=== PATIENT | male | born 1965 | race Hispanic/Latino ===

== ENCOUNTER 2020-03-15 07:54 | Emergency (ER) | payer SELFPAY ==
[2020-03-15] MEDS ORDERED: LIDOCAINE 1%/EPINEPHRINE 1:100,000 VIAL (20 ML) INFILTRATI NR (10:00)
--- NOTE | 2020-03-15 10:00 | Cat Scan Report ---
CT HEAD WITHOUT CONTRAST INDICATION / CLINICAL INFORMATION: MAIN. TECHNIQUE: Axial imaging performed from the skull apex through the skull base without the use of cont rast. Sagittal and coronal reformatted images. All CT scans at this location are performed using CT dose reduction for ALARA by means of automated exposure control. COMPARISON: None available. FINDINGS: CEREBRAL PARENCHYMA: No acute parenchymal abnormality. 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 HEMORRHAGE: None. EXTRA-AXIAL SPACES: Normal in size and morphology for the patient's age. VENTRICULAR SYSTEM: Normal in size and morphology for the patient's age. MIDLINE SHIFT OR HERNIATION: None. CEREBELLUM / BRAINSTEM: No significant abnormality. CALVARIUM: No significant abnormality. ORBITS: Normal as visualized. PARANASAL SINUSES / MASTOID AIR CELLS: Normal as visualized. SOFT TISSUES of HEAD: Left parietal soft tissue laceration is identified. ADDITIONAL FINDINGS: None. IMPRESSION: No acute intracranial abnormality. Chronic right occipital infarct. Left parietal soft tissue injury. Signer Name: Arley Izaguirre Jr, MD Signed: 03/15/2020 9:55 AM Workstation Name: [id number]
--- NOTE | 2020-03-15 10:05 | Cat Scan Report ---
CT FACIAL BONES WITHOUT CONTRAST INDICATION : Facial contusion on left side. TECHNIQUE: Axial imaging performed through the face with reconstructed images also reviewed. Sagitta l and coronal reformatted images. All CT scans at this location are performed using CT dose reduction for ALARA by means of automated exposure control. COMPARISON: None FINDINGS: No facial bone fracture is detected. The orbital cavities and contents are unremarkable. T here is mild mucosal thickening throughout the ethmoid air cells and maxillary sinuses. The mandible and zygomas are intact. The nasal septum deviates to the right side by 3 mm. Poor dentition is noted. The facial soft tissues are unremarkable. IMPRESSION: No acute abnormality. Signer Name: Arley Izaguirre Jr, MD Signed: 03/15/2020 10:00 AM Workstation Name: [id number]
[2020-03-15] MEDS ORDERED: oxyCODONE /ACETAMINOPHEN 5-325MG TAB PO ONE ×2 (10:41→10:46)
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
[2020-03-15] MEDS ORDERED: DIPHtheria,PERTUSSIS(ACELL),TETANUS VACCINE/PF 0.5 ML VIAL IM ONE (11:40)
[2020-03-15 11:55] VITALS: BP 140/90
== END 2020-03-15 11:53 | disposition home or self-care (01) ==
LOC: ED 07:54
DX: S01.01XA Laceration without foreign body of scalp, initial encounter (principal); S09.90XA Unspecified injury of head, initial encounter; S01.312A Laceration without foreign body of left ear, initial encounter; F17.200 Nicotine dependence, unspecified, uncomplicated; Z79.899 Other long term (current) drug therapy; Z98.890 Other specified postprocedural states; Y04.8XXA Assault by other bodily force, initial encounter; Y93.89 Activity, other specified; Y92.89 Other specified places as the place of occurrence of the external cause; Y99.8 Other external cause status
CPT/HCPCS: 70450; 70486; 90471; 90715

== ENCOUNTER 2020-03-28 11:31 | Emergency (ER) | payer SELFPAY ==
[2020-03-28 11:49] VITALS: BP 145/86
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
== END 2020-03-28 14:05 | disposition home or self-care (01) ==
LOC: ED 11:31
DX: T14.8XXD Other injury of unspecified body region, subsequent encounter (principal); Z53.21 Procedure and treatment not carried out due to patient leaving prior to being seen by health care provider